=== PATIENT | female | born 1970 | race Caucasian/White ===

== ENCOUNTER → 2019-07-01 10:02 | Outpatient (REF) | payer BC, SELFPAY | LOC: ANHLAB 10:02 | PROVIDERS: PCP Family Medicine; Visit Provider Nurse Practitioner | DX: B07.8 Other viral warts (principal) | CPT/HCPCS: 88305 ==

== ENCOUNTER 2019-09-23 15:47 | Outpatient (CLI) | payer BC, SELFPAY ==
--- NOTE | ~2019-09-23 | MM_ITS ---
EXAMINATION: MM screening [facility] BI w erik HISTORY: Screening mammogram TECHNIQUE: Craniocaudal and mediolateral oblique 3-D tomosynthesis images were obtained and synthetic 2-D images were generated. CAD analysis was submitted and interpreted. COMPARISON: Comparison to multiple prior studies sequentially, with oldest reviewed study dated 08/20. BREAST PARENCHYMAL COMPOSITION: There are scattered areas of fibroglandular density. FINDINGS: There is no evidence of suspicious mass, calcification, or architectural distortion to sugg est malignancy in either breast. There has been no suspicious interval change. IMPRESSION: 1. No mammographic evidence of malignancy. 2. Recommend routine screening mammography in one year. BI-RADS Category 1: Negative Reviewed, dictated and finalized at location A.
== END 2019-09-23 15:48 | disposition home or self-care (01) ==
PROVIDERS: PCP Family Medicine; Visit Provider Obstetrics & Gynecology
DX: Z12.31 Encounter for screening mammogram for malignant neoplasm of breast (principal)
CPT/HCPCS: 77063; 77067

== ENCOUNTER 2020-09-22 07:57 | Outpatient (CLI) | payer BC, SELFPAY ==
--- NOTE | ~2020-09-22 | MM_ITS ---
EXAMINATION: MM screening [facility] w [facility] HISTORY: Screening TECHNIQUE: Craniocaudal and mediolateral oblique 3-D tomosynthesis images were obtained and synthetic 2-D images were generated. CAD analysis was submitted and interpreted. COMPARISON: Comparison to multiple prior studies sequentially, with oldest reviewed study dated 08/24. BREAST PARENCHYMAL COMPOSITION: There are scattered areas of fibroglandular density. FINDINGS: There is no evidence of suspicious mass, calcification, or architectural distortion to sugg est malignancy in either breast. There has been no suspicious interval change. IMPRESSION: 1. No mammographic evidence of malignancy. 2. Recommend routine screening mammography in one year. BI-RADS Category 1: Negative Reviewed, dictated and finalized at location A.
== END 2020-09-22 07:58 | disposition home or self-care (01) ==
LOC: ANHIMG 08:00
PROVIDERS: PCP Family Medicine; Visit Provider Obstetrics & Gynecology
DX: Z12.31 Encounter for screening mammogram for malignant neoplasm of breast (principal)
CPT/HCPCS: 77063; 77067

== ENCOUNTER → 2021-01-10 16:15 | Outpatient (CLI) | payer BC, SELFPAY ==
--- NOTE | ~2021-01-10 | US_ITS ---
EXAMINATION: US thyroid DATE: 01/10/2021 16:33 INDICATION: Localized swelling, mass, and lump, neck. TECHNIQUE: Multiple ultrasound images of the thyroid were obtained. COMPARISON: None. FINDINGS: The right thyroid lobe measures 4.7 x 1.0 x 0.7 cm. The left thyroid lobe measures 3.0 x 0.7 x 0.9 c m. At the junction of the right thyroid lobe and isthmus is a 1.5 cm predominantly solid, hypoechoic , [id number]-[id number] nodule with lobulated margin without echogenic foci (TI-RADS TR4). IMPRESSION: 1. Thyroid nodule. Ultrasound-guided fine-needle aspiration is recommended. Reviewed, dictated and finalized at location A. LIER DEVELOPMENT MANAGER
== END ==
PROVIDERS: PCP Family Medicine; Visit Provider Physician Assistant Medical
DX: R59.9 Enlarged lymph nodes, unspecified (principal); E07.9 Disorder of thyroid, unspecified; E04.1 Nontoxic single thyroid nodule
CPT/HCPCS: 76536

== ENCOUNTER 2021-01-21 12:57 | Outpatient (CLI) | payer BC, SELFPAY ==
--- NOTE | ~2021-01-21 | US_ITS ---
EXAMINATION: US FNA w image guidance DATE: 01/21/2021 13:49 INDICATION: Thyroid nodule. TECHNIQUE: The procedure and its benefits and risks were discussed with the patient. Risks specifically discusse d included bleeding. The patient verbalized understanding of the risks and agreed to proceed. The nec k was prepped and draped in the usual sterile manner. 1% lidocaine was used for local anesthesia. 5 passes were made with a 25G needle into the lesion under ultrasound guidance. There were no immedia te complications. The patient understood to call the ordering physician for results after a week and verbalized that understanding. FINDINGS: Grayscale ultrasound images demonstrate needles advanced into a 1.5 cm nodule at the junction of righ t thyroid lobe and thyroid isthmus for biopsy. IMPRESSION: 1. Ultrasound-guided fine needle aspiration of a 1.5 cm thyroid nodule. Reviewed, dictated and finalized at location A. AL WORKER
== END 2021-01-21 12:58 | disposition home or self-care (01) ==
LOC: ANHIMG 13:05
PROVIDERS: PCP Family Medicine; Visit Provider Nurse Practitioner Family
DX: R59.9 Enlarged lymph nodes, unspecified (principal)
CPT/HCPCS: 10005; 88173; 88305

== ENCOUNTER 2021-11-19 07:26 | Outpatient (CLI) | payer BC, SELFPAY ==
--- NOTE | ~2021-11-19 | MM_ITS ---
EXAMINATION: MM screening [facility] BI w erik HISTORY: Screening mammogram TECHNIQUE: Craniocaudal and mediolateral oblique 3-D tomosynthesis images were obtained and synthetic 2-D images were generated. CAD analysis was submitted and interpreted. COMPARISON: 09/22/2020, 09/23/2019, 09/17/2018 BREAST PARENCHYMAL COMPOSITION: The breasts are almost entirely fatty. FINDINGS: There is no suspicious mass, calcification, or architectural distortion to suggest malignan cy in either breast. There has been no suspicious interval change. IMPRESSION: 1. No mammographic evidence of malignancy. 2. Recommend routine screening mammography in one year. BI-RADS Category 1: Negative Reviewed, dictated and finalized at location A.
== END 2021-11-19 07:27 | disposition home or self-care (01) ==
PROVIDERS: PCP Family Medicine; Visit Provider Obstetrics & Gynecology
DX: Z12.31 Encounter for screening mammogram for malignant neoplasm of breast (principal)
CPT/HCPCS: 77063; 77067

== ENCOUNTER → 2021-12-29 15:18 | Outpatient (CLI) | payer BC, SELFPAY ==
--- NOTE | ~2021-12-29 | XR_ITS ---
XR lumbar spine 2-3V DATE: 12/29/2021 15:55 INDICATION: Low back pain, sacroiliac joint pain TECHNIQUE: AP, lateral, coned lateral lumbosacral views COMPARISON: None FINDINGS: There is osteopenia. There is minimal levoscoliosis of the lumbar spine. There is degenerative change at the apophyseal joints with associated grade 1 anterolisthesis at L3-4 . Prominent degenerative spurring in the lower thoracic spine particularly T11-12, also moderate spurri ng at T12-L1. There is mild degenerative disc disease of the lumbar spine. No fracture or bone destruction of the lumbar spine. The lumbar pedicles are intact. The sacral iliac joints are normal. IMPRESSION: Degenerative change of the apophyseal joints with associated grade 1 anterolisthesis at L 3-4 Mild degenerative disc disease of lumbar spine Prominent lower thoracic spine spurring Reviewed, dictated and finalized at location A. IMPRESSION: Degenerative change of the apophyseal joints with associated grade 1 anterolisthesis at L3-4 Mild degenerative disc disease of lumbar spine Prominent lower thoracic spine spurring
--- NOTE | ~2021-12-29 | XR_ITS ---
XR sacroiliac joints min 3V DATE: 12/29/2021 15:55 INDICATION: Sacroiliac joint pain. Low back pain.. TECHNIQUE: AP and bilateral oblique views COMPARISON: None FINDINGS: Normal alignment at the pubic symphysis and sacroiliac joints. There is degenerative change including spurring at the sacroiliac joints but no erosive change or ankylosis. No fracture or dislo cation or bone destruction. IMPRESSION: Degenerative change at the sacroiliac joints Reviewed, dictated and finalized at Location A. Reviewed, dictated and finalized at location A.
== END ==
PROVIDERS: PCP Family Medicine; Visit Provider Nurse Practitioner Family
DX: M53.3 Sacrococcygeal disorders, not elsewhere classified (principal); M51.36 Other intervertebral disc degeneration, lumbar region
CPT/HCPCS: 72100; 72202

== ENCOUNTER 2023-03-10 07:18 | Outpatient (CLI) | payer BC, SELFPAY ==
--- NOTE | ~2023-03-10 | MM_ITS ---
EXAMINATION: MM screening [facility] BI w erik HISTORY: Screening mammogram TECHNIQUE: Craniocaudal and mediolateral oblique 3-D tomosynthesis images were obtained and synthetic 2-D images were generated. CAD analysis was submitted and interpreted. COMPARISON: 11/19/2021, 09/22/2020, 09/23/2019 BREAST PARENCHYMAL COMPOSITION: The breasts are almost entirely fatty. FINDINGS: No suspicious mass, calcification, or architectural distortion are identified in either sammie ast to suggest malignancy. There has been no suspicious interval change. IMPRESSION: 1. No mammographic evidence of malignancy. 2. Recommend routine screening mammography in one year. BI-RADS Category 1: Negative Reviewed, dictated and finalized at location A. CTOR OF PROVIDER RELATIONS
== END 2023-03-10 07:19 | disposition home or self-care (01) ==
PROVIDERS: PCP Family Medicine; Visit Provider Obstetrics & Gynecology
DX: Z12.31 Encounter for screening mammogram for malignant neoplasm of breast (principal)
CPT/HCPCS: 77063; 77067

== ENCOUNTER 2024-04-21 08:18 | Outpatient (CLI) | payer BC, SELFPAY ==
--- NOTE | ~2024-04-21 | MM_ITS ---
EXAMINATION: MM screening [facility] w erik HISTORY: Screening TECHNIQUE: Craniocaudal and mediolateral oblique 3-D tomosynthesis images were obtained and synthetic 2-D images were generated. CAD analysis was submitted and interpreted. COMPARISON: Comparison to multiple prior studies sequentially, with oldest reviewed study dated 09/12. BREAST PARENCHYMAL COMPOSITION: Not Dense: The breasts are almost entirely fatty. FINDINGS: There is no evidence of suspicious mass, calcification, or architectural distortion to sugg est malignancy in either breast. There has been no suspicious interval change. IMPRESSION: 1. No mammographic evidence of malignancy. 2. Recommend routine screening mammography in one year. BI-RADS Category 1: Negative Reviewed, dictated and finalized at location [] ICAL ADMISSIONS MANAGER
--- OUTSIDE RECORDS SUMMARY | 2024-04-21 11:17 | XMS_ITS | Referral Summary ---
Author Organization [facility] Address [address] [place] [address] Care Team Providers Care Hair Spring Winder Name Role Phone Chris Almeida MD Primary Care Provider [phone] Allergies No known active allergies Medications lisinopril (PRINIVIL,ZESTRIL) 20 mg tablet daily. Active meloxicam (MOBIC) 15 mg tablet Take 15 mg by mouth daily 0 Active levothyroxine (SYNTHROID) 100 mcg tabletIndications:A cquired hypothyroidism TAKE 1 TABLET IN THE MORNING WITH A GLASS OF WATER ON AN EMPTY STOMACH. MUST SCHEDULE APPT FOR FUTURE REFILLS. 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 Social History Tobacco Use Types Packs/Day Years Used Date Smoking Tobacco: Never Alcohol Use Standard Drinks/Week Comments No 0 (1 standard drink = 0.6 oz pur e alcohol) Comments Unknown Sex and Gender Information Value Date Recorded Sex Assigned at Not on file Legal Sex Female 1:35 AM PCTS Gender Identity Not on file Sexual Orientation Not on file Last Filed Vital Signs Vital Sign Reading Time Taken Comments Blood Pressure 136/76 08/04/2021 2:25 PM CDT Pulse 80 08/04/2021 2:25 PM CDT Temperature 36.7 C (98 F) 08/04/2021 2:25 PM CDT Respiratory Rate - - Oxygen Saturation - - Inhaled Oxygen Concentration - - Weight 117.5 kg (259 lb) 08/04/2021 2:25 PM CDT Height 167.6 cm (5' 6 ) 05/08/2019 4:13 PM PCTS Body Mass Index 41.8 05/08/2019 4:13 PM PCTS Plan of Treatment Not on file Insurance [employer] OOS Care Teams Hair Spring Winder Relationship Specialty Start Date End Date Chris Almeida MD PCP - General 10/11/10
--- OUTSIDE RECORDS SUMMARY | 2024-04-21 11:17 | XMS_ITS | Clinical Summary ---
Author Organization [facility] Address [address] [place] [address] Care Team Providers Care Semiconductor Wafer Inspector Name Role Phone Chris Almeida MD Primary Care Provider [phone] Allergies No known active allergies Medications lisinopril (PRINIVIL,ZESTRIL) 20 mg tablet daily. Active meloxicam (MOBIC) 15 mg tablet Take 15 mg by mouth daily 0 Active levothyroxine (SYNTHROID) 100 mcg tabletIndications:A cquired hypothyroidism TAKE 1 TABLET IN THE MORNING WITH A GLASS OF WATER ON AN EMPTY STOMACH. MUST SCHEDULE APPT FOR FUTURE REFILLS. 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 Surgical History Surgery Date Site/Laterality Comments RI TONSILLECTOMY PRIMARY/SEC ONDARY <AGE 12 Tonsillectomy - (Added by TW Conv) RI DILATION & CURETTAGE DX&/ THER NONOBSTETRIC Dilation And Curettage - (Added by TW Conv) Medical History Medical History Date Comments Hypothyroidism hypothyroidism Family History Medical History Relation Name Comments Arrhythmia Father Family history of cardiac pacemaker - (Added by TW Conv) Hypertension Father Family history of hypertension - (Added by TW Conv) Hypertension Mother Family history of hypertension - (Added by TW Conv) Thyroid disease Other 1 Family histo ry of Thyroid disorder; Other Other 2 No family histo ry of Diabetes mellitus; Relation Name Status Comments Father Mother Other 1 Other 2 Social History Tobacco Use Types Packs/Day Years Used Date Smoking Tobacco: Never Alcohol Use Standard Drinks/Week Comments No 0 (1 standard drink = 0.6 oz pur e alcohol) Comments Unknown Sex and Gender Information Value Date Recorded Sex Assigned at Not on file Legal Sex Female 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 Gender Identity Not on file Sexual Orientation Not on file Obstetrics History Last Filed Vital Signs Vital Sign Reading Time Taken Comments Blood Pressure 136/76 08/04/2021 2:25 PM CDT Pulse 80 08/04/2021 2:25 PM CDT Temperature 36.7 C (98 F) 08/04/2021 2:25 PM CDT Respiratory Rate - - Oxygen Saturation - - Inhaled Oxygen Concentration - - Weight 117.5 kg (259 lb) 08/04/2021 2:25 PM CDT Height 167.6 cm (5' 6 ) 05/08/2019 4:13 PM ENGINEERING PRODUCTION WORKER Body Mass Index 41.8 05/08/2019 4:13 PM ENGINEERING PRODUCTION WORKER Plan of Treatment Health Maintenance Due Date Last Done Comments Breast Cancer Screening-Mammogram 1968 Cervical Cancer Screening 1968 Colon Cancer Screening-Colonoscopy 1968 Depression Screening 1968 Hepatitis C Screening 1968 Hepatitis B Screening 1986 Regular Well Visit/Exam 18-64 1986 Zoster Vaccine (1 of 2) 2018 Influenza Vaccine (#1) 2023 DTaP/Tdap/Td Vaccine (2 - Td or Tdap) 01/25/2025 01/25/2015 Pneumococcal vaccine <65 Aged Out No longer eligible based on patient's age to complete this topic Insurance BLUE ACC CHOICE OOS ANTH ACCESS CHOICE Care Teams Semiconductor Wafer Inspector Relationship Specialty Start Date End Date Chris Almeida MD PCP - General 10/11/10
== END 2024-04-21 08:19 | disposition home or self-care (01) ==
LOC: ANHIMG 08:21
PROVIDERS: PCP Family Medicine; Visit Provider Obstetrics & Gynecology
DX: Z12.31 Encounter for screening mammogram for malignant neoplasm of breast (principal)
CPT/HCPCS: 77063; 77067